=== PATIENT | male | born 1950 | race Caucasian/White ===

== ENCOUNTER 2018-11-22 07:28 | Day surgery (SDC) | payer MEDICARE, MEDICAID ==
[~2018-11-22] VITALS: Ht 162.6 cm; Wt 74.8 kg
[~2018-11-22 07:28] MED LIST: AMLO10TA80 PO; ATOR10TA69 PO; BENA40TA9 PO; INSU3INS2 SQ; LORA10TA7 PO; METF-416 PO
[2018-11-22] MEDS ORDERED: SODIUM CHLORIDE 0.9% 1,000 ML IV SCH (08:45)
[2018-11-22 08:50] LABS: HEMATOCRIT 36.7 % (42.0-52.0); HEMOGLOBIN 12.1 g/dL (14.0-18.0); MEAN CORPUSCULAR HEMOGLOBIN 29.4 pg (28.0-32.0); MEAN CORPUSCULAR VOLUME 89.3 fL (80.0-94.0); PLATELET 302 x1000/uL (130-400); RED BLOOD CELL COUNT 4.12 mill/uL (4.7-6.1); RED CELL DISTRIBUTION WIDTH 14.1 % (11.6-14.6)
[2018-11-22 08:54] LABS: CHLORIDE 104 mEq/L (98-107)
[2018-11-22] MEDS ORDERED: PROPOFOL 200MG/20ML VIAL IV ONE ×2 (09:14→10:09)
[2018-11-22] MEDS ORDERED: LIDOCAINE HCL/PF 1% 10 MG/ML 5ML VIAL ONE (09:15)
[2018-11-22] MEDS ORDERED: ONDANSETRON HCL 4MG/2ML INJ IV PRN (09:30)
[2018-11-22] MEDS ORDERED: SIMETHICONE 40 MG/0.6 ML 30ML ONE (10:00)
== END 2018-11-22 13:15 | disposition home or self-care (01) ==
LOC: OR 07:28
PROVIDERS: ATTEND Internal Medicine Gastroenterology
DX: Z12.11 Encounter for screening for malignant neoplasm of colon (principal); K64.8 Other hemorrhoids; I10 Essential (primary) hypertension; E11.9 Type 2 diabetes mellitus without complications; E78.5 Hyperlipidemia, unspecified; G47.33 Obstructive sleep apnea (adult) (pediatric); Z86.010 Personal history of colon polyps; Z79.899 Other long term (current) drug therapy
CPT/HCPCS: 36415; 80048; 82962; 85027; 93005; G0105; J2704; J3490